=== PATIENT | male | born 1935 | race Caucasian/White ===

== ENCOUNTER → 2024-09-05 | Outpatient (CLI) | payer MEDICARE, MEDICAID, SELFPAY ==
[2024-09-05 08:31] LABS: Basophils % (Auto) 0 % (0-2.5); Eosinophils # (Auto) 0.1 Thou/mm3 (0.0-0.5); Eosinophils % (Auto) 1 % (0-10); Hematocrit 41.1 % (41.0-53.0); Hemoglobin 12.6 g/dL (13.5-16.0); Immature Granulocytes % (Auto) 0 % (0-0); Immature Granulocytes Auto 0.02 Thou/mm3 (0.00-0.00); Lymphocytes # (Auto) 1.5 Thou/mm3 (1.0-4.8); Lymphocytes % (Auto) 22 % (10-50); Mean Corpuscular HGB Conc 30.7 g/dl (31.0-37.0); Mean Corpuscular Hemoglobin 27.9 pg (25.0-35.0); Mean Corpuscular Volume 91 fL (80-100); Monocytes # (Auto) 0.6 Thou/mm3 (0.0-0.8); Monocytes % (Auto) 8 % (0-12); Neutrophils # (Auto) 4.7 Thou/mm3 (1.8-7.7); Neutrophils % (Auto) 68 % (37-80); Nucleated Red Blood Cell % 0 /100 WBC (0); Platelet Count 262 Thou/mm3 (140-440); RDW Standard Deviation 58.7 fL (35.1-43.9); Red Blood Count 4.52 Miln/mm3 (4.50-5.90); White Blood Count 6.9 Thou/mm3 (3.8-10.6)
[2024-09-05 09:02] LABS: Alanine Aminotransferase 10 U/L (10-49); Albumin, Serum 2.6 gm/dL (3.4-4.8); Alkaline Phosphatase 101 U/L (46-116); Anion Gap 7 (7-16); Aspartate Amino Transferase 16 U/L (0-34); BUN/Creatinine Ratio 20 Ratio (12-20); Bilirubin,Direct 0.2 mg/dL (0.0-0.3); Bilirubin,Total 0.4 mg/dL (0.3-1.2); Blood Urea Nitrogen 12 mg/dL (9-23); Calcium 9.2 mg/dL (8.3-10.6); Carbon Dioxide 38.2 mMol/L (20.0-31.0); Cardiac Risk Estimate 1.5 RATIO (4.0-6.7); Chloride 99 mMol/L (98-107); Cholesterol 101 mg/dL (132-200); Creatinine (Component) 0.6 mg/dL (0.6-1.3); Free T4 (Free Thyroxine) 0.97 ng/dL (0.89-1.76); Glucose 84 mg/dL (74-106); HDL Cholesterol 66 mg/dL (40-60); LDL Cholesterol,Calculated 25 mg/dL (0-130); Osmolality,Calculated 285 (275-295); Potassium 4.3 mMol/L (3.4-5.1); Sodium 144 mMol/L (136-145); Thyroid Stimulating Hormone 3.53 uIU/mL (0.55-4.78); Total Protein 4.7 gm/dL (5.7-8.2); Triglycerides 49 mg/dL (30-150); eGFR > 60 See Note
== END | disposition home or self-care (01) ==
LOC: COPL 07:40
PROVIDERS: PCP Family Medicine; Referring Provider Internal Medicine Cardiovascular Disease; Visit Provider Internal Medicine Cardiovascular Disease
DX: E78.5 Hyperlipidemia, unspecified (principal); I10 Essential (primary) hypertension; I25.118 Atherosclerotic heart disease of native coronary artery with other forms of angina pectoris
CPT/HCPCS: 36415; 80048; 80061; 80076; 84439; 84443; 85025

== ENCOUNTER 2024-10-16 12:37 | Inpatient (IN) | payer MEDICARE, MEDICAID, SELFPAY ==
[2024-10-16] VITALS (20 sets, daily range): BP systolic 134–177; BP diastolic 82–103; PULSE 74–108; RESP 12–28; TEMP 36.5–37; O2SAT 81–99; BMI 16.8
--- NOTE | 2024-10-16 12:47 | EKG_ITS ---
[facility] Test Date: 2024-10-16 Pat Name: JOEY KING Department: Room: - Gender: Male [employer]: : 1935 Requested By: Henry Simmons (SOO) Order Number: [id number] Reading MD: Henry Simmons (ESTATE PLANNING DIRECTOR) Measurements Intervals [place] Rate: 75 P: MS: QRS: 35 QRSD: 77 T: 59 QT: 356 QTc: 399 Interpretive Statements ATRIAL FIBRILLATION VOLTAGE CRITERIA FOR LVH [MEETS CRITERIA IN ONE OF: R(aVL), S(V1), R(V5), R(V5/V6)+S(V1)] No previous ECG available for comparison /store/S0/[id number]/[id number].pdf
--- NOTE | 2024-10-16 12:59 | XR_ITS ---
Examination: PA lateral chest 2 views TECHNIQUE: Upright PA lateral chest 2 views Exam date and time: October 16, 2024 1331 hours Comparison May 14, 2019 INDICATIONS: Acute chest pain today. FINDINGS: Suspicious for 3 cm cavitary lesion left upper lobe Pneumonia and volume loss at the right base with moderate to large right pleural effusion Normal heart size IMPRESSION: Recommend CT chest without contrast follow-up to exclude 3 cm cavitary lesion left upper lobe Significant atelectasis pneumonia right base with significant right pleural fluid
--- NOTE | 2024-10-16 13:00 | PD.EDRME ---
Rapid Medical Screening Exam RME Arrival date/time: 10/16/24 12:37 88-year-old presents to the emergency department for complaints of shortness of breath Chief Complaint: Shortness of Breath/Dyspnea Vital signs: Vital Signs Temperature 98.3 F 10/16/24 12:51 Pulse Rate 81 10/16/24 12:51 Respiratory Rate 24 H 10/16/24 12:51 Blood Pressure 144/83 H 10/16/24 12:51 Pulse Oximetry (%) 86 L 10/16/24 12:51 Oxygen Delivery Method Room Air 10/16/24 12:51
[2024-10-16 13:20] LABS: Basophils % (Auto) 0 % (0-2.5); Eosinophils # (Auto) 0.1 Thou/mm3 (0.0-0.5); Eosinophils % (Auto) 1 % (0-10); Hematocrit 36.2 % (41.0-53.0); Immature Granulocytes % (Auto) 1 % (0-0); Immature Granulocytes Auto 0.07 Thou/mm3 (0.00-0.00); Lymphocytes # (Auto) 0.9 Thou/mm3 (1.0-4.8); Lymphocytes % (Auto) 11 % (10-50); Mean Corpuscular HGB Conc 30.4 g/dl (31.0-37.0); Mean Corpuscular Hemoglobin 28.8 pg (25.0-35.0); Mean Corpuscular Volume 95 fL (80-100); Monocytes # (Auto) 0.7 Thou/mm3 (0.0-0.8); Monocytes % (Auto) 9 % (0-12); Neutrophils # (Auto) 6.3 Thou/mm3 (1.8-7.7); Neutrophils % (Auto) 78 % (37-80); Nucleated Red Blood Cell % 0 /100 WBC (0); Platelet Count 293 Thou/mm3 (140-440); RDW Standard Deviation 57.3 fL (35.1-43.9); Red Blood Count 3.82 Miln/mm3 (4.50-5.90); White Blood Count 8.1 Thou/mm3 (3.8-10.6)
[2024-10-16 13:39] LABS: Partial Thromboplastin Time 26.5 Seconds (22.0-36.0); Prothrombin Time 10.9 Seconds (9.0-12.2)
[2024-10-16 14:21] LABS: B-Type Natriuretic Peptide 505 pg/mL (0-100)
[2024-10-16 14:22] LABS: Alanine Aminotransferase 13 U/L (10-49); Albumin, Serum 2.5 gm/dL (3.4-4.8); Alkaline Phosphatase 92 U/L (46-116); Anion Gap 6 (7-16); Aspartate Amino Transferase 18 U/L (0-34); BUN/Creatinine Ratio 17 Ratio (12-20); Bilirubin,Total 0.2 mg/dL (0.3-1.2); Blood Urea Nitrogen 10 mg/dL (9-23); Calcium 9.2 mg/dL (8.3-10.6); Calcium (Corrected) 10.4 mg/dL (8.5-10.1); Carbon Dioxide > 40.0 mMol/L (20.0-31.0); Chloride 98 mMol/L (98-107); Creatinine (Component) 0.6 mg/dL (0.6-1.3); Estimated Creatinine Clearance 62.2 mL/min (>60); Globulin 2.4 gm/dL (2.3-3.5); Glucose 96 mg/dL (74-106); Magnesium 1.9 mg/dL (1.6-2.6); Osmolality,Calculated 285 (275-295); Potassium 4.1 mMol/L (3.4-5.1); Sodium 144 mMol/L (136-145); Total Protein 4.9 gm/dL (5.7-8.2); Troponin I < 0.020 ng/mL (0.0-0.045); eGFR > 60 See Note
--- NOTE | 2024-10-16 16:45 | XR_ITS ---
Examination: CT chest, without intravenous contrast. Sagittal and coronal 2-D reconstructions. Exam date and time: October 16, 2024 1715 hours Comparison June 22, 2017 INDICATIONS: Shortness of breath difficulty breathing CTDI:vol (mGy) today DLP: (mGycm) 269 Technique: Multiple 3.0 mm axial sections of the chest to been obtained. Bone and lung density settings are obtained. Sagittal and coronal 2-D reconstructions have been obtained. Low dose protocols were performed. One or more of the following dose reduction techniques were used; automated exposure control, adjustment of the mA and/or KV according to patient size, use of iterative reconstruction technique. Findings: Aneurysmal dilatation ascending thoracic aorta AP dimension 4.6 cm Mild enlargement main pulmonary artery segments. 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
--- NOTE | 2024-10-16 16:52 | PD.EDADULT ---
ED General RME/HPI General Chief complaint: Shortness of Breath/Dyspnea Stated complaint: SENT BY PMD FOR ADMIT, HYPOXIA Time Seen by Provider: 10/16/24 19:06 Arrival date/time: 10/16/24 12:37 CC: Shortness of breath HPI progressive worsening over the last 2 weeks. Patient is normally on 3 L nasal cannula 10/01. Turned up to 4 L. woke him up this morning and noticed oxygen saturations at 86 to 87% on 4 L. He is short of breath unable to lay flat. denies any chest pain as the patient does. Patient referred over from 's office. Patient assessed at 1700. RME / HPI RME / HPI narrative: 10/16/24 12:37 88-year-old presents to the emergency department for complaints of shortness of breath Related Data Home Medications ?Medication ?Instructions ?Recorded ?Confirmed benazepril 40 mg tablet (Lotensin) 40 mg PO QDAY #0 tabs 06/22/17 04/13/22 finasteride 5 mg tablet 1 tab PO QDAY ##0 06/22/17 04/13/22 omeprazole 20 mg tablet,delayed 40 mg PO BID ##0 06/22/17 04/13/22 release aspirin 81 mg tablet,delayed 81 mg PO QDAY 08/11/18 04/13/22 release diltiazem HCl 360 mg capsule,24 360 mg PO QDAY 10/03/18 04/13/22 hr,extended release fluticasone 250 mcg-salmeterol 50 1 inh inhalation BID 10/03/18 04/13/22 mcg/dose blistr powdr for inhalation (Advair Diskus) furosemide 40 mg tablet 40 mg PO QDAY 10/03/18 04/13/22 ipratropium 20 mcg-albuterol 100 1 puff inhalation QID 10/03/18 04/13/22 mcg/actuation mist for inhalation (Combivent Respimat) Allergies Allergy/AdvReac Type Severity Reaction Status Date / Time No Known Allergies Allergy Verified 10/16/24 12:41 Review of Systems Review of Systems Narrative Review of Systems: GEN: No fever, no chills, no weight loss EYES: No discharge, no visual changes, no pain HEENT: No ear pain, no congestion, no sore throat PULM: + shortness of breath, no cough, no congestion CV: No chest pain, no dyspnea on exertion, no palpitations GI: No nausea, no vomiting, no diarrhea, no pain, no constipation : No frequency, no urgency, no dysuria MUSC/SKEL: No joint pain, no back pain SKIN: No rash PSYCH: No hallucinations, no depression HEME/LYMPH: No easy bleeding or bruising tendencies NEURO: No weakness, no headache Past Medical History Past Medical History NEUROLOGIC: Positive Neurological Disorders and Head Trauma (concussion); Negative Seizures CARDIAC: Positive Cardiac Disorders, Myocardial Infarction, Angina, Hypercholesterolemia, Congestive Heart Failure, Edema and Hypertension RESPIRATORY: Positive Chronic Obstructive Pulmonary Disease (COPD), Asthma and Pneumonia GASTROINTESTINAL: Positive Gastrointestinal Disorders, Gall Bladder Disease, Hiatal Hernia and Gastroesophageal Reflux Disease GENITOURINARY: Positive Genitourinary Disorders and Benign Prostatic Hyperplasia; Negative Renal Disease MUSCULOSKELETAL: Positive Musculoskeletal Disorders, Gout and Fractures (nose) ENT: Positive Cataracts and Head Trauma (concussion); Negative Glaucoma ENDOCRINE: Negative Endocrine Disorders, Diabetes Mellitus Type 1 or Diabetes Mellitus Type 2 HEMATOLOGIC: Negative Blood Disorders OTHER HISTORY: Positive Hospitalization (2017 pneumonia), Anesthesia Reactions (difficulty waking up), Chicken Pox and Measles; Negative Shingles, Falls or Blood Transfusions Family History FAMILY HISTORY: Positive Family Cardiac Disorders and Family Cancer Surgical History SURGICAL: Positive Vasectomy Social History SMOKING STATUS: Former smoker ED Exam Narrative Physical exam: [General: Frail, deconditioned, in mild discomfort but not in any acute distress Head normocephalic HEENT: Eyes pupils are PERRLA EOMs are intact mouth pink dry membranes uvula is midline swallow symmetrical phonation is normal. Within acceptable limits Neck is supple nontender no edema no JVD no LAD Chest equal chest rise nontender to palpation Respiratory: Poor inspiratory effort clear to auscultation in the upper lobes diminished in the bases. Decreased breath sounds right side CV: Rate rhythm is regular no murmurs rubs or clicks Abdomen is flat, soft nontender no masses positive bowel sounds all 4 quadrants Back: No CVA tenderness no spinous process tenderness from cervical spine thoracic and lumbar spine Skin: Pale, intact no petechiae rash induration ulceration or crepitus Extremities: Moving all extremities weakly against resistance cap refill less than 2 seconds neurosensory intact Neuro: Awake alert oriented x2, person and place, Glascow coma 15 no focal deficits] Course Course Course Narrative: Patient has had progressive worsening shortness of breath in spite of turning up on the oxygen, CT shows the patient has significant base pneumonia with a large right pleural effusion and hypoxemia patient's case discussed with the resident for Dr. Elise, who agrees to accept the patient for admission Quality Measures none Orders Category Date Time Status EKG (ED ONLY) *Do not use* NOW Care 10/16/24 12:[address] chest wo con Stat Exams 10/16/24 16:45 Completed EKG (ED Only) Stat Exams 10/16/24 12:47 Draft XR chest 2V Stat Exams 10/16/24 12:59 Completed B-Type Natriuretic Peptide Stat Lab 10/16/24 13:06 Completed B-Type Natriuretic Peptide Stat Lab 10/16/24 18:15 Received Blood Culture (Lab) Stat Lab 10/16/24 18:15 Received CBC Stat Lab 10/16/24 13:06 Completed Comprehensive Metabolic Panel Stat Lab 10/16/24 13:06 Completed Drug Screen,Urine Stat Lab 10/16/24 16:50 Ordered LDH (Lactate Dehydrogenase) Stat Lab 10/16/24 18:15 Received Lactic Acid [Lactate (Lactic Acid)] Stat Lab 10/16/24 18:15 Completed Magnesium Stat Lab 10/16/24 13:06 Completed Magnesium Stat Lab 10/16/24 18:15 Received Partial Thromboplastin Time Stat Lab 10/16/24 13:06 Completed Procalcitonin Stat Lab 10/16/24 13:06 Completed Prothrombin Time with INR Stat Lab 10/16/24 13:06 Completed Troponin I Stat Lab 10/16/24 13:06 Completed Troponin I Stat Lab 10/16/24 18:15 Received Urinalysis Stat Lab 10/16/24 16:50 Ordered cefTRIAXone/D5w 1gm IV premix [Rocephin/D5w 1gm IV Med 10/16/24 18:37 Discontinued premix] 1 gm in 50 ml IV X1 Vital Signs Vital signs: Vital Signs Temperature 98.3 F 10/16/24 12:51 Pulse Rate 81 10/16/24 12:51 Respiratory Rate 24 H 10/16/24 12:51 Blood Pressure 144/83 H 10/16/24 12:51 Pulse Oximetry (%) 86 L 10/16/24 12:51 Oxygen Delivery Method Room Air 10/16/24 12:51 Discharge Plan Plan Patient Disposition: Other Care w/in Hosp (SDC/DOC) Patient condition on transfer: Stable Prescriptions/Referrals Prescriptions/Med Rec: No Action aspirin 81 mg tablet,delayed release (DR/EC) 81 mg PO QDAY benazepril [Lotensin] 40 MG tablet 40 mg PO QDAY Qty: 0 finasteride 5 MG tablet 1 tab PO QDAY Qty: 0 omeprazole 20 MG tablet,delayed release (DR/EC) 40 mg PO BID Qty: 0 furosemide 40 mg Tablet 40 mg PO QDAY fluticasone propion-salmeterol [Advair Diskus] 250-50 mcg/dose Blister With Device 1 inh INHALATION BID diltiazem HCl 360 mg Capsule,Extended Release 24 Hr 360 mg PO QDAY Combivent Respimat 20-100 mcg/actuation Mist 1 puff INHALATION QID Referrals: No Primary/Family,Physician [Primary Care Provider] - In 1 week Problem List Clinical Impression: Shortness of breath, COPD (chronic obstructive pulmonary disease), Pneumonia, Pleural effusion Patient/Caregiver Discharge Instructions Print Language: Moroccan Stand Alone Forms: [place] Award Info., Patient Portal Info Letter 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 Normal platelet count Coags within acceptable limits CMP shows CO2 greater than 40 anion gap of 6 magnesium 1.9 T. bili of 0.2 no transaminitis. BNP is 505 Troponin is within acceptable limits Chronic Illness/Social Conditions which may negatively complicate care or outcome(s)-explain: COPD EKG EKG Interpretation(s): EKG performed at 1257 shows a ventricular rate of 75 QRS of 77 QTc of 385 this is A-fib. Labs Labs: Interpreted by me Lab(s) Interpretation(s): See above Imaging Imaging interpretation: Interpreted by me Imaging Interpretation(s): Chest x-ray interpreted by me read by radiology shows right atelectasis, pneumonia, with right pleural effusion. Questionable left cavitating lesion. CT chest without contrast shows an ascending thoracic aorta aneurysm at 4.6 cm pulmonary nodular metastatic disease significant pneumonia right base moderate to large right pleural effusion and enlarged hepatic duct. Medication Administration(s) none Medication Administration History Discontinued Medications Ceftriaxone Sodium/Dextrose (Rocephin/D5w 1gm Iv Premix) 1 gm in 50 mls @ 100 mls/hr IV X1 ONE Stop: 10/16/24 19:06
[2024-10-16 18:04] LABS: Procalcitonin 0.12 ng/ml (0.0-0.49)
[2024-10-16 18:25] LABS: Lactate (Lactic Acid) 1.4 mMol/L (0.4-2.0)
[2024-10-16] MEDS: cefTRIAXone/D5w 1gm IV premix 1 GM/50 ML BAG IV (19:16)
[2024-10-16 19:56] LABS: B-Type Natriuretic Peptide 487 pg/mL (0-100)
[2024-10-16 20:16] LABS: LDH (Lactate Dehydrogenase) 230 U/L (120-246); Troponin I < 0.020 ng/mL (0.0-0.045)
--- NOTE | 2024-10-16 20:43 | XR_ITS ---
Examination: CT brain head without contrast. 2-D sagittal coronal reconstructions Date and time of exam:October 16, 20245 hours MEDICATIONS: Onset left arm weakness today CTDI: vol (mGy):45.7 DLP: (mGycm):974 Technique: Multiple CT axial sections of the brain have been obtained, 5 mm slice thickness. Contrast has not been administered. 2-D sagittal, coronal reconstructions have been obtained Low dose protocols were performed. One or more of the following dose reduction techniques were used; automated exposure control, adjustment of the mA and/or KV according to patient size, use of iterative reconstruction technique. Findings: Patient motion degrades scan image quality No significant ventricular enlargement No gross hemorrhage Prominent chronic microvascular white matter change IMPRESSION: Limited study secondary to patient motion No gross hemorrhage or gross mass effect As clinically warranted, brain MRI follow up would best assess for acute ischemic change
--- NOTE | 2024-10-16 20:44 | XR_ITS ---
Examination: Venous duplex lower extremity sonogram, bilateral. Date and time of exam: October 16, 2024 2110 hours INDICATIONS: Bilateral leg swelling 3 days Technique: Multiple sonographic images of the deep venous system have been obtained. B-mode/2-D grayscale imaging of vascular structures and Doppler spectral analysis (waveforms) and color performed Both legs are examined. Findings: Deep venous systems do not demonstrate abnormal echogenicity. All visualized deep veins exhibit compressibility. All visualized deep veins exhibit augmentation. Impression: Negative for deep vein thrombosis
--- NOTE | 2024-10-16 21:00 | ESHP_ITS ---
Documentation for date of: 10/16/24 [facility] History of Present Illness Chief complaint: shortness of breath History of present illness: The patient is a 88-year-old male with a previous medical history of COPD on 3 L of oxygen constantly, hypertension, CAD status post myocardial infarction, GERD, BPH who was brought into the ED due to increased shortness of breath, saturation at 86 to 87% on 4 L, orthopnea. According to the patient started a few days ago. He also reports left arm weakness which started a few days ago. He denies recent falls, traumas. ED course: Initial blood pressure 144/83, heart rate 81, respiratory rate 24, afebrile, saturation 86. Labs showed WBC count 8.1, hemoglobin 11, hematocrit 36.2, platelets 293, INR 1.0. Sodium 144, potassium 4.1, chloride 98, carbon dioxide more than 40, anion gap 6, BUN 10, creatinine 0.6, glucose 96, lactic acid 1.4, corrected calcium 10.4, magnesium 2.0, AST 18, ALT 13, alkaline phosphatase 92, lactate dehydrogenase 230, troponin 1 was less than 0.02 twice, BNP 505, albumin 2.5, procalcitonin 0.12. 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 Head CT?Limited study secondary to patient motion, no gross hemorrhage or gross mass effect. Lower extremity ultrasound Doppler negative for DVT. EKG showed A-fib, rate controlled. He received ceftriaxone 1 g in the ED x 1 Social history: Reports living with his daughter, not able to ambulate independently. 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 Drinks 1 beer once a year. Allergies: Denies Medications: Med rec is pending Surgical history: Cholecystectomy appendectomy, prostate surgery. Patient is going to be admitted for acute on chronic hypoxic respiratory failure secondary to community-acquired pneumonia and COPD exacerbation. Review of Systems Review of Systems Systems Reviewed: All systems reviewed, normal except as documented Past Medical History Past Medical History NEUROLOGIC: Positive Neurological Disorders and Head Trauma (concussion); Negative Seizures CARDIAC: Positive Cardiac Disorders, Myocardial Infarction, Angina, Hypercholesterolemia, Congestive Heart Failure, Edema and Hypertension RESPIRATORY: Positive Chronic Obstructive Pulmonary Disease (COPD), Asthma and Pneumonia GASTROINTESTINAL: Positive Gastrointestinal Disorders, Gall Bladder Disease, Hiatal Hernia and Gastroesophageal Reflux Disease GENITOURINARY: Positive Genitourinary Disorders and Benign Prostatic Hyperplasia; Negative Renal Disease MUSCULOSKELETAL: Positive Musculoskeletal Disorders, Gout and Fractures (nose) ENT: Positive Cataracts and Head Trauma (concussion); Negative Glaucoma ENDOCRINE: Negative Endocrine Disorders, Diabetes Mellitus Type 1 or Diabetes Mellitus Type 2 HEMATOLOGIC: Negative Blood Disorders OTHER HISTORY: Positive Hospitalization (2017 pneumonia), Anesthesia Reactions (difficulty waking up), Chicken Pox and Measles; Negative Shingles, Falls or Blood Transfusions Family History FAMILY HISTORY: Positive Family Cardiac Disorders and Family Cancer Surgical History SURGICAL: Positive Vasectomy Social History SMOKING STATUS: Former smoker Exam Vital Signs Temp Pulse Resp BP Pulse Ox O2 Del Method O2 Flow Rate 98.1 F 79 19 177/89 H 96 Nasal Cannula 3 10/16/24 20:48 10/16/24 20:48 10/16/24 20:48 10/16/24 20:48 10/16/24 20:48 10/16/24 20:48 10/16/24 20:48 Narrative Exam Physical Exam General: Awake, elderly, chronically ill-appearing thin male. HEENT: Normocephalic, atraumatic, mucous membranes moist. Heart: Regular rate and rhythm, no murmurs. Lungs: Left sided wheezing, bilateral crackles. Abdomen: Soft, nondistended, nontender, positive bowel sounds. ?No guarding or rebound tenderness. Neurologic: Alert and oriented x2 (regarding time, able to name month, but unable to name year), decreased strength in the left arm. Extremities: Bilateral 3+ pitting edema. Skin: No rash or ecchymoses. Results: Labs 10/17/24 00:17 10/17/24 00:17 Labs: Short CBC 10/16/24 Range/Units 13:06 WBC 8.1 (3.8-10.6) Thou/mm3 Hgb 11.0 L (13.5-16.0) g/dL Hct 36.2 L (41.0-53.0) % Plt Count 293 D (140-440) Thou/mm3 BMP 10/16/24 13:06 Sodium 144 Potassium 4.1 Chloride 98 Carbon Dioxide > 40.0 H BUN 10 Creatinine 0.6 Glucose 96 Calcium 9.2 Cardiac Enzymes 10/16/24 10/16/24 Range/Units 13:06 18:15 Troponin I < 0.020 < 0.020 (0.0-0.045) ng/mL Liver Function 10/16/24 Range/Units 13:06 Total Bilirubin 0.2 L (0.3-1.2) mg/dL AST 18 (0-34) U/L ALT 13 (10-49) U/L Alkaline Phosphatase 92 (46-116) U/L Albumin 2.5 L (3.4-4.8) gm/dL Quality Measures Quality Measures VTE prophylaxis Advance care planning discussed with:: patient Medications Home Medications and Allergies Home Medications ?Medication ?Instructions ?Recorded ?Confirmed ?Type benazepril 40 mg tablet (Lotensin) 40 mg PO QDAY #0 ta bs 06/22/17 04/13/22 History finasteride 5 mg tablet 1 tab PO QDAY ##0 06/22/17 1 History omeprazole 20 mg tablet,delayed 40 mg PO BID ##0 06/2204/13/22 History release aspirin 81 mg tablet,delayed 81 mg PO QDAY 08/11/18 History release diltiazem HCl 360 mg capsule,24 360 mg PO QDAY 9 04/13/22 History hr,extended release fluticasone 250 mcg-salmeterol 50 1 inh inhalation BID 10/03/18 04/13/22 History mcg/dose blistr powdr for inhalation (Advair Diskus) furosemide 40 mg tablet 40 mg PO QDAY 10/03/1804/13 History ipratropium 20 mcg-albuterol 100 1 puff inhalation QID 10/03/18 04/13/22 History mcg/actuation mist for inhalation (Combivent Respimat) Allergies Allergy/AdvReac Type Severity Reaction Status Date / Time No Known Allergies Allergy Verified 10/16/24 12:41 Visit Medications Acetaminophen (Acetaminophen 325 Mg Tablet) 650 mg PO Q6H PRN PRN Reason: Fever >100.3 or pain 1-3 Stop: 11/15/24 20:33 Albuterol/Ipratropium (Albuterol/Ipratropium (Duoneb) Rt Yoselin 3 Ml Nebu) 3 ml INH Q4HRRT PEGGY Stop: 11/15/24 22:59 Furosemide (Furosemide Inj 10 Mg/Ml 4ml Vial) 40 mg IVP BIDD PEGGY Stop: 11/15/24 20:59 Ceftriaxone Sodium/Dextrose (Rocephin/D5w 1gm Iv Premix) 1 gm in 50 mls @ 100 mls/hr IV QDAY [facility] Stop: 10/24/24 08:59 Azithromycin 500 mg/ Sodium (Chloride) 250 mls @ 250 mls/hr IV QDAY [facility] Stop: 10/23/24 20:44 Azithromycin 500 mg/ Sodium (Chloride) 250 mls @ 250 mls/hr IV X1 ONE Stop: 10/16/24 21:59 Ondansetron HCl (Ondansetron Inj 2 Mg/Ml Inj 2 Ml) 4 mg IV Q6H PRN; Protocol PRN Reason: NAUSEA OR VOMITING Stop: 11/15/24 20:33 Oxycodone/Acetaminophen (Oxycodone/Apap 5/325 Tablet) 1 tab PO Q6H PRN PRN Reason: PAIN SCALE 4-6 (Moderate Stop: 10/21/24 20:33 Discontinued Medications Heparin Sodium (Porcine) (Heparin Sod Inj 5000 Unit/Ml Vial) 5,000 unit SC X1 ONE Stop: 10/16/24 20:41 Last Admin: 10/16/24 20:52 Dose: Not Given Heparin Sodium (Porcine) (Heparin Sod Inj 5000 Unit/Ml Vial) 5,000 unit SC X1 ONE Stop: 10/16/24 20:41 Ceftriaxone Sodium/Dextrose (Rocephin/D5w 1gm Iv Premix) 1 gm in 50 mls @ 100 mls/hr IV X1 ONE Stop: 10/16/24 19:06 Last Infusion: 10/16/24 20:51 Dose: Infused Sodium Chloride (Sodium Chloride Rt 10% 15 Ml Nebu) 5 ml INH X1 ONE Stop: 10/16/24 20:35 Assessment & Plan Plan The patient is a 88-year-old male with a previous medical history of COPD on 3 L of oxygen constantly, hypertension, CAD status post myocardial infarction, GERD, BPH who was brought into the ED due to increased shortness of breath, saturation at 86 to 87% on 4 L, orthopnea. #Acute on chronic hypoxic respiratory failure #COPD exacerbation #Community-acquired pneumonia #Right-sided pleural effusion Patient has increased SOB, oxygen requirements went from 3 L to 4 L. Imaging was positive for right-sided pneumonia and pleural effusion. Plan: ? Ceftriaxone 1 g daily ? Azithromycin 500 mg daily ? Sputum cultures ordered ? Blood cultures ordered ? DuoNebs inhalations every 4 hours ? Methylprednisone 40 mg IV daily ? Ultrasound-guided thoracentesis ordered ? Pleural fluid cell count, culture and analysis #Left arm weakness Patient has decreased strength in the left arm. CT head-imaging degraded by motion, negative for acute stroke. Plan: - left shoulder xray #Pulmonary metastatic disease Imaging showed multiple bilateral pulmonary nodules, the largest in the left upper lobe 11 mm and left lower lobe 13 mm. Patient has a history of long-term smoking. Plan: ? Consider oncology consult ? Follow-up outpatient #History of CAD #History of CHF #History of hypertension #Afib, rate controlled EKG showed Afib, rate controlled. Home medication list showed diltiazem ER prescription. Plan: ? Furosemide 40 mg twice daily ? Official med rec is pending - cardizem Cd 240 mg qday #History of BPH Plan: ? Home finasteride resumed Health maintenance: FEN: cardiac diet, NPO after midnight DVT prophylaxis: SCDs GI prophylaxis: none Dispo: telemetry CODE STATUS: Full code Plan of care discussed with attending Dr. Elise. Yanna Carlisle MD, PGY 1. Attending Provider Attestation/Addendum I attest that I was physically present for the evaluation, physical examination, lab and imaging review of the patient with the residents. I discussed the case with the residents and agree with the findings and plans of care as documented above. Patient is an 88 years old male with past medical history of COPD on 3 L home oxygen, hypertension, CAD status post CT, GERD, BPH who presented to the ED with complaint of increased shortness of breath, orthopnea. His symptoms started few days ago. He is also having left arm weakness, numbness on his right leg. He denies any recent fall or trauma. In the ED, he was tachycardic, hypoxic and was started on supplemental oxygen. Lab results show hemoglobin of 11, CO2 more than 40, anion gap 6, lactic acid 1.4, LDH 230, BNP 505. Chest x-ray shows significant atelectasis/pneumonia of right base and significant right pleural effusion. Chest CT was also done, which shows pulmonary nodular metastatic disease, heavy coronary artery calcification, significant pneumonia of right base and moderate to large right pleural effusion. We will admit the patient for management of acute on chronic hypoxic respiratory failure, COPD exacerbation likely secondary to community-acquired pneumonia and right-sided pleural effusion. Will start him on IV Rocephin and azithromycin. We will obtain culture results. Also started on DuoNebs, steroid. We will obtain thoracentesis with pleural fluid analysis. Patient also had some left arm weakness, we will obtain head CT to rule out any stroke and shoulder x-ray to rule out shoulder injury. Jenny Elise MD
--- NOTE | 2024-10-16 22:18 | XR_ITS ---
Examination: Left shoulder single view TECHNIQUE: AP portable left shoulder single view, internal rotation Examination time: October 16, 2024 1028 hours, indications: Pain and decreased range of motion shoulder today FINDINGS: Severe osteopenia Pulmonary nodules in the left lung, please see the CT chest report today Advanced glenohumeral joint Calcific tendinitis IMPRESSION: Advanced glenohumeral joint Left shoulder calcific tendinitis
[2024-10-16] MEDS: AZITHROMYCIN INJ 500 MG in SODIUM CHLORIDE 0.9% 250 ML 250 ML 250 MG IV (22:58)
[2024-10-16] MEDS: FUROSEMIDE INJ 10 MG/ML 4ML VIAL 40 MG IVP (22:59)
[2024-10-16] MEDS: HEPARIN SOD INJ 5000 UNIT/ML VIAL SC (23:31)
[2024-10-16] MEDS: SODIUM CHLORIDE RT 10% 15 ML NEBU 5 ML INH (23:39)
[2024-10-16] MEDS: ALBUTEROL/IPRATROPIUM (Duoneb) RT SOL 3 ML NEBU INH (23:44)
--- NOTE | 2024-10-16 23:55 | PC.RT ---
PT unable to spontaneously produce sputum and unable to tolerate induction. Pt desat to 80% with induction, per MD Gant sputum ok to cancel.
[2024-10-17] VITALS (40 sets, daily range): BP systolic 44–158; BP diastolic 30–103; PULSE 51–116; RESP 2–59; TEMP 36.3; O2SAT 61–99
[2024-10-17 00:11] LABS: Collection Type, Urine Clean Catch; Squamous Epithelial Cell,Urine 0 /hpf (0-5)
[2024-10-17] MEDS: ETOMIDATE INJ 2 MG/ML VIAL 10 ML 20 MG IVP (00:20)
--- NOTE | 2024-10-17 00:20 | XR_ITS ---
Examination: AP chest single view TECHNIQUE: Portable AP chest supine single view Examination 1020 10/17/2024 0033 hours Comparison October 16, 2024 INDICATIONS: Hypoxic respiratory failure postintubation post gastrointestinal tube placement FINDINGS: Tracheal tube tip 3.4 cm above Danielle Orogastric tube side port just beyond the GE junction Atelectasis and pneumonia right base with right pleural fluid Cavitary parenchymal disease left upper lobe No significant cardiac enlargement IMPRESSION: Pneumonia and volume loss right base with right pleural fluid Endotracheal tube tip 3.4 cm above Danielle Advance the orogastric tube 4 cm
[2024-10-17] MEDS: fentaNYL 2,500 MCG/250 ML BAG 2,500 MCG/250 ML BAG IV (00:25)
[2024-10-17] MEDS: PROPOFOL 1,000 MG IVPB 1,000 MG/100 ML VIAL 1.551 MG IV (00:25)
--- NOTE | 2024-10-17 00:28 | PD.RESCONSUL ---
HPI Data of Consult Requesting Physician: Jenny Elise MD Admitting Provider: Jenny Elise MD Attending Provider: Jenny Elise MD Primary Care Provider: Physician No Primary/Family Consult Narrative Reason for consult: cardiac arrest History of present illness: Patient is a 88 year old male with PMH of COPD (3L), HTN, CAD s/p ID, GERD, BPH who came to the ED for dyspnea and new onset L arm weakness 3 days ago. Patient was admitted for acute on chronic hypoxic respiratory failure due to COPD exacerbation and community acquired pneumonia complicated by R sided pleural effusion. Patient was brought to his room from the ED. Around 23:45 inducted sputum was attempted however patient did not tolerate. At 00:11, CODE BLUE as called overhead. CPR was started right away. No underlying rhythm was unidentified because pads were still being put on. At the 2 minute pulse check, patient had pulse at 00:13. Blood glucose 100s. Patient was emergently intubated and transferred to the ICU. Prior to code, patient was awake, alert, joking. cc:: cc: Jenny Elise MD Review of Systems Review of Systems ROS Unobtainable: unobtainable due to mental status and due to endotracheal tube Exam Vital Signs Temp Pulse Resp BP Pulse Ox O2 Del Method O2 Flow Rate 98.1 F 103 H 28 H 158/103 H 81 L Nasal Cannula 4 10/16/24 20:48 10/16/24 23:39 10/16/24 23:39 10/16/24 23:02 10/16/24 23:39 10/16/24 20:48 10/16/24 23:39 Narrative Exam Constitutional: Intubated, sedated. Elderly cachetic male HEENT: NCAT. NG and ET tube in place. Respiratory: Decreased breath sounds and crackles bilaterally, wheezing more pronounced on left side Cardiac: RRR. Abdomen: Abdomen soft, non-distended. MSK: B/L LE edema 2+ to shins Skin: Cool extremities, mild mottling over lower extremities Lines: [place], NG, ET, PIV Results Labs 10/17/24 00:17 10/17/24 00:17 Labs: Short CBC 10/16/24 Range/Units 13:06 WBC 8.1 (3.8-10.6) Thou/mm3 Hgb 11.0 L (13.5-16.0) g/dL Hct 36.2 L (41.0-53.0) % Plt Count 293 D (140-440) Thou/mm3 BMP 10/16/24 13:06 Sodium 144 Potassium 4.1 Chloride 98 Carbon Dioxide > 40.0 H BUN 10 Creatinine 0.6 Glucose 96 Calcium 9.2 Cardiac Enzymes 10/16/24 10/16/24 Range/Units 13:06 18:15 Troponin I < 0.020 < 0.020 (0.0-0.045) ng/mL Liver Function 10/16/24 Range/Units 13:06 Total Bilirubin 0.2 L (0.3-1.2) mg/dL AST 18 (0-34) U/L ALT 13 (10-49) U/L Alkaline Phosphatase 92 (46-116) U/L Albumin 2.5 L (3.4-4.8) gm/dL Quality Measures Quality Measures VTE prophylaxis Advance care planning discussed with:: patient (by hospitalist team at admission) Medications Home Medications and Allergies Home Medications ?Medication ?Instructions ?Recorded ?Confirmed ?Type benazepril 40 mg tablet (Lotensin) 40 mg PO QDAY #0 tabs 06/22/17 04/13/22 History finasteride 5 mg tablet 1 tab PO QDAY ##0 06/22/17 04/13/22 History omeprazole 20 mg tablet,delayed 40 mg PO BID ##0 06/22/17 04/13/22 History release aspirin 81 mg tablet,delayed 81 mg PO QDAY 08/11/18 04/13/22 History release diltiazem HCl 360 mg capsule,24 360 mg PO QDAY 10/03/18 04/13/22 History hr,extended release fluticasone 250 mcg-salmeterol 50 1 inh inhalation BID 10/03/18 04/13/22 History mcg/dose blistr powdr for inhalation (Advair Diskus) furosemide 40 mg tablet 40 mg PO QDAY 10/03/18 04/13/22 History ipratropium 20 mcg-albuterol 100 1 puff inhalation QID 10/03/18 04/13/22 History mcg/actuation mist for inhalation (Combivent Respimat) Allergies Allergy/AdvReac Type Severity Reaction Status Date / Time No Known Allergies Allergy Verified 10/16/24 12:41 Visit Medications Acetaminophen (Acetaminophen 325 Mg Tablet) 650 mg PO Q6H PRN PRN Reason: Fever >100.3 or pain 1-3 Stop: 11/15/24 20:33 Albuterol/Ipratropium (Albuterol/Ipratropium (Duoneb) Rt Yoselin 3 Ml Nebu) 3 ml INH Q4HRRT ON [facility] Stop: 11/15/24 22:59 Last Admin: 10/16/24 23:44 Dose: 3 ml Finasteride (Finasteride 5 Mg Tablet) 5 mg PO QDAY [facility] Stop: 11/16/24 08:59 Furosemide (Furosemide Inj 10 Mg/Ml 4ml Vial) 40 mg IVP BIDD [facility] Stop: 11/15/24 20:59 Last Admin: 10/16/24 22:59 Dose: 40 mg Propofol (Diprivan Ivpb) 1,000 mg in 100 mls @ 1.551 mls/hr IV .Q24H PRN; Protocol PRN Reason: PER PROTOCOL Stop: 11/16/24 00:20 Fentanyl Citrate (Sublimaze Inj 2,500 Mcg/250 Ml Bag) 2,500 mcg in 250 mls @ 2.5 mls/hr IV .Q24H PRN; Protocol PRN Reason: PER PROTOCOL Stop: 10/22/24 00:20 Piperacillin Sod/Tazobactam (Sod 4.5 gm/ Sodium Chloride) 100 mls @ 200 mls/hr IV Q6HR ON [facility] Stop: 10/24/24 00:23 Methylprednisolone Sodium Succinate (Methylprednisolone Sod Succ 40 Mg Vial) 40 mg IVP DAILY ON [facility] OF [facility] Stop: 10/23/24 22:04 Last Admin: 10/16/24 22:57 Dose: 40 mg Ondansetron HCl (Ondansetron Inj 2 Mg/Ml Inj 2 Ml) 4 mg IV Q6H PRN; Protocol PRN Reason: NAUSEA OR VOMITING Stop: 11/15/24 20:33 Oxycodone/Acetaminophen (Oxycodone/Apap 5/325 Tablet) 1 tab PO Q6H PRN PRN Reason: PAIN SCALE 4-6 (Moderate Stop: 10/21/24 20:33 Pharmacy Consult (Vancomycin Pharmacy To Dose 1 Each Each) 1 each IV QDAY ON [facility] Stop: 11/16/24 08:59 Discontinued Medications Diltiazem HCl (Diltiazem Cd 120 Mg Capcr) 240 mg PO QDAY PEGGY Stop: 11/15/24 22:14 Last Admin: 10/16/24 23:02 Dose: Not Given Etomidate (Etomidate Inj 2 Mg/Ml Vial 10 Ml) 20 mg IVP X1 ONE Stop: 10/17/24 00:20 Heparin Sodium (Porcine) (Heparin Sod Inj 5000 Unit/Ml Vial) 5,000 unit SC X1 ONE Stop: 10/16/24 20:41 Last Admin: 10/16/24 20:52 Dose: Not Given Heparin Sodium (Porcine) (Heparin Sod Inj 5000 Unit/Ml Vial) 5,000 unit SC X1 ONE Stop: 10/16/24 20:41 Last Admin: 10/16/24 23:31 Dose: 5,000 unit Ceftriaxone Sodium/Dextrose (Rocephin/D5w 1gm Iv Premix) 1 gm in 50 mls @ 100 mls/hr IV X1 ONE Stop: 10/16/24 19:06 Last Infusion: 10/16/24 20:51 Dose: Infused Ceftriaxone Sodium/Dextrose (Rocephin/D5w 1gm Iv Premix) 1 gm in 50 mls @ 100 mls/hr IV QDAY PEGG[facility] Stop: 10/24/24 08:59 Azithromycin 500 mg/ Sodium (Chloride) 250 mls @ 250 mls/hr IV QDAY PEGG[facility] Stop: 10/23/24 20:44 Azithromycin 500 mg/ Sodium (Chloride) 250 mls @ 250 mls/hr IV X1 ONE Stop: 10/16/24 21:59 Last Admin: 10/16/24 22:58 Dose: 250 mls/hr Rocuronium [place] (Rocuronium Inj 10 Mg/Ml Vial 10 Ml) 50 mg IV X1 ONE Stop: 10/17/24 00:20 Sodium Chloride (Sodium Chloride Rt 10% 15 Ml Nebu) 5 ml INH X1 ONE Stop: 10/16/24 20:35 Last Admin: 10/16/24 23:39 Dose: 5 ml Assessment & Plan Plan Patient is a 88 year old male with PMH of COPD (3L), HTN, CAD s/p ID, GERD, BPH admitted to the hospital for acute hypoxic respiratory failure and admitted the ICU for cardiopulmonary arrest with ROSC. [employer] #Acute encephalopathy Hypoxic versus hypercapnic, metabolic Sedated on propofol and fentanyl Head CT negative - SAT in AM if can tolerate CARDIOVASCULAR #Cardiopulmonary arrest s/p ROSC #History of CAD #History of CHF, EF 40% #History of afib Etiology includes hypoxia, aspiration, pending troponin and EKG to rule out acute ID Elevated BNP Echo from 2018 shows EF of 40% with mild global hypokinesis - EKG - Echo - Lasix 40 BID - SBT in AM if can tolerate - Follow up troponin - Bedside echo #History of HTN Hold home meds in the setting of soft BP from sedation RESPIRATORY #Acute on chronic hypoxic respiratory failure COPD exacerbation, CAP, pulmonary nodules, R sided pleural effusion CT shows multiple nodules and R pleural effusion - Continue ventilator with lung protective measures, wean as tolerated; maintain SpO2 88-92% - Follow up ABG - Bedside POCUS to assess pleural effusion if amenable for thoracentesis/chest tube - Consider chest tube if needed with pleural fluid studies - IV antibiotics - Check Cocci given nodules on CT RENAL #Lactic acidosis In the setting of cardiopulmonary arrest, hypoxia - Trend Q3H GI #History of GERD On pepcid for GI prophylaxis ENDO No acute problems HEME Leukocytosis In the setting of infection ID #CAP IV antibiotics broadened to vanc and zosyn - Follow up sputum, urine, and blood culture Health Maintenance Disposition: Admit to ICU s/p cardiopulmonary arrest Diet and fluids: NPO DVT prophylaxis: heparin GI prophylaxis: pepcid Lines: PIV, De La Rosa, ET, NG CODE STATUS: FULL I have reviewed and discussed the patient's care with my attending, Dr. Gosia Gant MD PGY-3 Attending Provider Attestation/Addendum I attest that I was physically present for the evaluation, physical examination, lab and imaging review of the patient with the residents. I discussed the case with the residents and agree with the findings and plans of care as documented above. Overnight, CHANCE TONY was called overhead, rushed to the patient room. CPR was already started. Patient obtained ROSC at 2 minutes pulse check. Emergency intubation was done in the guidance of ED physician. Patient was then transferred to ICU. Started on propofol and fentanyl for sedation. Earlier while inducing sputum patient was unable to tolerate the procedure, patient desaturated down to 80s and sputum culture was canceled. We will continue with Lasix 40 twice daily. Ordered troponin, ABG, lactate, CBC and CMP. We will also broaden his antibiotics to IV vancomycin and Zosyn. We will follow-up with culture results. Jenny Elise MD
[2024-10-17 00:30] LABS: Bilirubin,Urine Negative (Negative); Blood,Urine Negative (Negative); Clarity,Urine Clear (Clear/Hazy); Color,Urine Lt-Yellow (Lt Yel-Yel); Glucose, Urine Negative (Negative); Ketones,Urine Negative (Negative); Leukocyte Esterase,Urine Negative (Negative); Nitrite,Urine Negative (Negative); Protein,Urine Negative (Neg - Trace); RBC,Urine < 1 /hpf (0-3); Urobilinogen,Urine Negative mg/dL (0.0-1.0); WBC,Urine 1 /hpf (0-5)
--- NOTE | 2024-10-17 00:36 | PC.NURSE ---
MT called to report that pt's HR went down to 50, procedure writer got in the room to check pt and pt was unresponsive. Todd barrios called at 0011. Called pt's emergency contact Sandi to notify her but was unable to get a hold of her. Pt was transferred to ICU.
[2024-10-17 00:39] LABS: Amphetamine/Methamp Scrn,U Negative (Negative); Barbiturate Screen,Urine Negative (Negative); Benzodiazepines Screen,Urine Negative (Negative); Benzoylecgonine Screen, Ur Negative (Negative); Fentanyl Screen,Urine Positive (Negative); Opiate Screen,Urine Negative (Negative); THC Screen,Urine Negative (Negative)
[2024-10-17 00:47] LABS: Basophils % (Auto) 0 % (0-2.5); Eosinophils # (Auto) 0.1 Thou/mm3 (0.0-0.5); Eosinophils % (Auto) 1 % (0-10); Hematocrit 39.8 % (41.0-53.0); Hemoglobin 11.9 g/dL (13.5-16.0); Immature Granulocytes % (Auto) 1 % (0-0); Immature Granulocytes Auto 0.18 Thou/mm3 (0.00-0.00); Lymphocytes % (Auto) 36 % (10-50); Mean Corpuscular HGB Conc 29.9 g/dl (31.0-37.0); Mean Corpuscular Hemoglobin 28.6 pg (25.0-35.0); Mean Corpuscular Volume 96 fL (80-100); Monocytes # (Auto) 1.3 Thou/mm3 (0.0-0.8); Monocytes % (Auto) 8 % (0-12); Neutrophils # (Auto) 8.9 Thou/mm3 (1.8-7.7); Neutrophils % (Auto) 54 % (37-80); Nucleated Red Blood Cell # 0.02 Thou/mm3 (0.00-0.00); Nucleated Red Blood Cell % 0 /100 WBC (0); Platelet Count 315 Thou/mm3 (140-440); RDW Standard Deviation 58.2 fL (35.1-43.9); Red Blood Count 4.16 Miln/mm3 (4.50-5.90); White Blood Count 16.5 Thou/mm3 (3.8-10.6)
--- NOTE | 2024-10-17 00:57 | EKG_ITS ---
[facility] Test Date: 2024-10-17 Pat Name: JO[facility] KING [facility] Commercial Litigation Paralegal: IT[place] : [id number] Requested By: Connie Gant Order Number: [id number] Reading MD: Connie Gant Measurements Intervals [place] Rate: 84 P: TN: QRS: 77 QRSD: 78 T: 86 QT: 368 QTc: 435 Interpretive Statements ATRIAL FIBRILLATION WITH ABERRANT CONDUCTION OR VENTRICULAR PREMATURE COMPLEXES NONSPECIFIC ST & T-WAVE ABNORMALITY ABNORMAL RHYTHM ECG Compared to ECG 10/16/2024 12:57:05 Ventricular premature complex(es) now present Aberrant conduction of supraventricular beat(s) now present T-wave abnormality now present Left ventricular hypertrophy no longer present /store/S0/[id number]/[id number].pdf
[2024-10-17 00:59] LABS: Base Excess 16 (-3-3); HCO3 45 mEq/L (20-26); Inspired Oxygen, FIO2 100 %; O2 Saturation 99 % (91-98); PCO2 83 mmHg (32.0-48.0); PO2 114 mmHg (83-108); pH, Arterial 7.34 (7.35-7.45)
[2024-10-17 01:02] LABS: Alanine Aminotransferase 17 U/L (10-49); Albumin, Serum 2.5 gm/dL (3.4-4.8); Alkaline Phosphatase 102 U/L (46-116); Anion Gap 5 (7-16); Aspartate Amino Transferase 31 U/L (0-34); BUN/Creatinine Ratio 14 Ratio (12-20); Bilirubin,Total 0.3 mg/dL (0.3-1.2); Blood Urea Nitrogen 10 mg/dL (9-23); Calcium (Corrected) 10.2 mg/dL (8.5-10.1); Carbon Dioxide 39.4 mMol/L (20.0-31.0); Chloride 100 mMol/L (98-107); Creatinine (Component) 0.7 mg/dL (0.6-1.3); Estimated Creatinine Clearance 53.4 mL/min (>60); Globulin 2.6 gm/dL (2.3-3.5); Glucose 234 mg/dL (74-106); Magnesium 2.2 mg/dL (1.6-2.6); Osmolality,Calculated 293 (275-295); Phosphorous 3.2 mg/dL (2.4-5.1); Potassium 4.4 mMol/L (3.4-5.1); Sodium 144 mMol/L (136-145); Total Protein 5.1 gm/dL (5.7-8.2); Troponin I < 0.020 ng/mL (0.0-0.045); eGFR > 60 See Note
[2024-10-17 01:06] LABS: Allen Test Performed/OK; Puncture Site Left Radial
[2024-10-17] MEDS: PIPER/TAZO INJ 4.5 GM in SODIUM CHLORIDE 0.9% (POP) 100 ML IV (01:40)
--- NOTE | 2024-10-17 01:59 | PD.RESPROC ---
Procedures Procedure Date / Time 10/17/24 0159 Intubation Indication(s): acute Resp Failure Informed consent obtained: procedure done urgently (cardiac arrest) Time out done, and the following verified: correct patient, side and site, procedure, patient position and implants and/or equipment Sedative: none Laryngoscope: fiber optic video scope Assist device used: fiber optic device ET tube size: 7 ET tube uncuffed: No Tube secured depth (cm): 24 Tube secured location: other (gums) Tube placement confirmation: visualized tube passing through cords, equal breath sounds bilaterally, no breath sounds over epigastrium and confirmation by capnometry Patient tolerated procedure: well and no complications EBL(ml): 0 Intubation complications: none Additional comments: Procedure was done under supervision of Dr. Zelaya.
--- NOTE | 2024-10-17 02:02 | PD.RESEVENT ---
Documentation for date of: 10/17/24 Event Note Event Note: At 00: 11 AM a CODE BLUE was called. RN was notified the patient heart rate went to 50s, went to the room and found the patient unresponsive. Previously he had sputum induction done, started to cough and desaturate and was stopped, he received DuoNeb inhalation. CPR was started and at the second minute post shock patient had pulse at 00:13 a.m. Patient was intubated. Blood glucose was in 100s. Patient was transferred to the ICU. Plan of care discussed with attending Dr. Elise. Yanna Carlisle MD, PGY 1.
--- NOTE | 2024-10-17 02:20 | PD.RESEVENT ---
Documentation for date of: 10/17/24 Event Note Event Note: Spoke to Sandi cunha, at bedside in the ICU. She is the primary medical decision maker. Decision was made to change code status from FULL to DNR. Family decided to pursue COMFORT CARE MEASURES. Conversation witnessed by charge manager. POLST form signed. Attending physician also notified. I have reviewed and discussed the patient's care with my attending, Dr. Gosia Gant MD PGY-3
--- NOTE | 2024-10-17 03:04 | PD.DPN ---
Documentation for date of: 10/17/24 Pronouncement Note Date and Time of Date of : 10/17/24 Time of : 03:00 PCOD Preliminary cause of : Cardiopulmonary arrest Summary Additional details: Called to see patient for unresponsiveness. On exam the patient was unresponsive, no spontaneous movement observed, patient did not respond to verbal or noxious stimuli. Absent heart and breath sounds for more than 2 minute. Pupils are fixed and dilated, corneal reflex was absent. Patient pronounced at 03:00. Dr. Elise notified. Sandi Chauhan, notified at bedside. Additional Data Confirmation of : no pulse, no respirations, no heart sounds and pupils fixed and dilated Family: at bedside Attending/PCP notified?: Yes Attending physician: Jenny Elise MD Was code activated?: No
--- NOTE | 2024-10-17 03:06 | DES_ITS ---
<Statement entered by Jenny Elise MD - 10/17/24 03:23> I attest that I was physically present for the evaluation, physical examination, lab and imaging review of the patient with the resident. I discussed the case with the residents and agree with the findings and plans of care as documented below. Jenny Elise MD Documentation for date of: 10/17/24 Summary Date and Time Date of admission: 10/16/24 20:33 Date of : 10/24/24 Time of : 03:00 Summary Details: Patient is a 88 year old male with PMH of COPD (3L), HTN, CAD s/p SD, GERD, BPH who came to the ED for dyspnea and new onset L arm weakness 3 days ago. Patient was hypoxic at 85% on room air and chest CT imaging showed right-sided pleural effusion, pneumonia, and multiple lung nodules. Patient was admitted for acute on chronic hypoxic respiratory failure due to COPD exacerbation and community acquired pneumonia complicated by R sided pleural effusion. He was started on IV antibiotics with plans for thoracentesis. At 00:11, CODE BLUE as called overhead. CPR was started right away. At the 2 minute pulse check, patient had pulse at 00:13. Patient was emergently intubated and transferred to the ICU. Sandi, the patient's daugther, was notified and came to bedside. She is the primary decision maker and decision was made to change the code status from full code to DNR. Family decided to pursue COMFORT CARE MEASURES, which were initiated. Patient was pronounced at 03:00. I have reviewed and discussed the patient's care with my attending, Dr. Gosia Gant MD PGY-3 #Cardiopulmonary arrest s/p ROSC #History of CAD #History of CHF, EF 40% #History of afib #History of HTN #Acute on chronic hypoxic respiratory failure #Lactic acidosis #History of GERD #Community-acquired pneumonia Additional Data Confirmation of as documented by pronouncing clinician: no pulse, no respirations, no heart sounds and pupils fixed and dilated Family: at bedside Attending/PCP notified?: Yes Attending physician: Jenny Elise MD Was code activated?: No Visit Providers Provider Primary care physician: Physician No Primary/Family Admitting clinician: Jenny Elise Attending physician on admission: Jenny Elise Diagnosis PCOD Cause of : Cardiopulmonary arrest Discharge Plan Plan Patient Disposition: Patient condition on transfer: Stable Prescriptions/Referrals Referrals: No Primary/Family,Physician [Primary Care Provider] - Patient/Caregiver Discharge Instructions Print Language: [place]
[2024-10-17 03:33] LABS: Reflex Lactate? Y
--- NOTE | 2024-10-17 07:31 | PC.NURSE ---
0330 belongings sent home with Sandi Sofie (Daughter).
== END 2024-10-17 03:00 | disposition expired | DRG 208 ==
LOC: SERX 19:19 → SERHOLD 20:53 → S2NX 21:57 → S2SX 10-17 00:24
PROVIDERS: Nurse Practitioner Primary Care; Registered Nurse General Practice; Student in an Organized Health Care Education/Training Program; Admitting Provider Student in an Organized Health Care Education/Training Program; Emergency Provider Emergency Medicine; Visit Provider Student in an Organized Health Care Education/Training Program
DX: J96.21 Acute and chronic respiratory failure with hypoxia (principal); J18.9 Pneumonia, unspecified organism; J44.1 Chronic obstructive pulmonary disease with (acute) exacerbation; C78.00 Secondary malignant neoplasm of unspecified lung; G93.40 Encephalopathy, unspecified; E87.20 Acidosis, unspecified; J44.0 Chronic obstructive pulmonary disease with (acute) lower respiratory infection; Z87.891 Personal history of nicotine dependence; I25.2 Old myocardial infarction; N40.0 Benign prostatic hyperplasia without lower urinary tract symptoms; K21.9 Gastro-esophageal reflux disease without esophagitis; Z99.81 Dependence on supplemental oxygen; I50.9 Heart failure, unspecified; I11.0 Hypertensive heart disease with heart failure; I48.91 Unspecified atrial fibrillation; I46.9 Cardiac arrest, cause unspecified; I71.21 Aneurysm of the ascending aorta, without rupture; Z66 Do not resuscitate; I25.10 Atherosclerotic heart disease of native coronary artery without angina pectoris; Z51.5 Encounter for palliative care; Z79.82 Long term (current) use of aspirin; Z79.899 Other long term (current) drug therapy
CPT/HCPCS: 36415; 36600; 70450; 71046; 71250; 73020; 80053; 80307; 81001; 82803; 82945; 83605; 83615; 83735; 83880; 84100; 84145; 84157; 84484; 85025; 85610; 85730; 86635; 87040; 87205; 87811; 89051; 89220; 92950; 93005; 93970; 94002; 94640; 94664; 96365; 96366; 99285; A9270; J0456; J0696; J1644; J1938; J2543; J2704; J2919; J3010; J3490; J7050